=== PATIENT | male | born 1990 | race Caucasian/White ===

== ENCOUNTER 2016-06-28 16:19 | Emergency (ER) | payer BC ==
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
[2016-06-28 17:58] VITALS: BP 135/76; PULSE 95; O2SAT 95
== END 2016-06-28 18:03 | disposition home or self-care (01) ==
LOC: ED 16:19
DX: M79.1 Myalgia (principal); V49.49XD Driver injured in collision with other motor vehicles in traffic accident, subsequent encounter; V49 Car occupant injured in other and unspecified transport accidents
CPT/HCPCS: 99283; L0120